=== PATIENT | male | born 1985 | race African-American/Black ===

== ENCOUNTER → 2016-12-17 | Outpatient (CLI) | payer BC ==
[~2016-12-17] MED LIST: TAMIFLU75 M1 PO
--- NOTE | ~2016-12-17 | CR63 ---
[facility] A Service of [facility] RADIOLOGY TEXT RESULTS PATIENT: DICK HAMM LOCATION: [facility] : 81 UNIT #: [id number] AGE: [address]: Stefan Mandel MD SEX: M ORDER DR: [id number] [place] [id number] MR#: [id number] Acc #: [id number] NAME: DICK HAMM : 1985 SEX: M STUDY DATE/TIME: 12/17/2016 10:25 UNIT: SRAD ROOM: STUDY DESCRIPTION: CR Chest 2 View Attending Physician: Stefan Mandel M.D. Ordering Physician: Stefan Mandel M.D. Primary Care Physician: No Primary Care Physician MEDICAL IMAGING REPORT This report is preliminary unless electronic signature is present. EXAM Chest 12/17/2016 HISTORY 31-year-old male patient with lymphadenopathy in the groin, finding on physical exam. 10 year smoking history. COMPARISON 07/01/2010 FINDINGS PA and lateral chest views show normal cardiac size and configuration. Hilar structures and mediastinal contours are preserved with no evidence for adenopathy. Bilateral lungs are expanded and clear. Costophrenic angles are preserved. The spleen appears normal in size. IMPRESSION Mild pulmonary hyperinflation. No evidence for hilar or mediastinal adenopathy. The spleen appears normal in size. No acute chest finding. Dictated by... Juan Manuel Lux M.D. THIS IS AN ELECTRONICALLY VERIFIED REPORT Juan Manuel Lux M.D. at 12/17/2016 1:56 PM JAJA/maria esther TD: 12/17/2016 13:21 JOB #: [id number] MEDICAL IMAGING REPORT [facility] A Service [facility] RADIOLOGY TEXT RESULTS PATIENT: DICK HAMM LOCATION: [facility] : 81 UNIT #: [id number] AGE: [address]: Stefan Mandel MD SEX: M ORDER DR: Page 1 of 1
== END | disposition home or self-care (01) ==
LOC: SRAD 10:21
DX: R59.0 Localized enlarged lymph nodes (principal); R91.8 Other nonspecific abnormal finding of lung field
CPT/HCPCS: 71020